=== PATIENT | male | born 1980 | race African-American/Black ===

== ENCOUNTER 2025-04-07 10:28 | Emergency (ER) | payer MEDICAID ==
[~2025-04-07] VITALS: Ht 180.3 cm; Wt 80.0 kg
[2025-04-07 10:50] VITALS: O2SAT 99
[2025-04-07] MEDS ORDERED: POTASSIUM CHLORIDE 20MEQ TABLET SR PO ONE (11:30)
[2025-04-07] MEDS: IBUPROFEN 600MG TABLET PO ONE (11:48)
[2025-04-07] MEDS ORDERED: HYDR30CR80 TP (11:58)
[2025-04-07] MEDS ORDERED: SENN-215 MT (11:58)
[2025-04-07] MEDS ORDERED: PSYL575P22 MT (11:58)
[2025-04-07 12:10] VITALS: BP 130/66; PULSE 82; RESP 15; TEMP 36.7; O2SAT 96
[2025-04-07] MEDS ORDERED: IBUP-2029 MT (12:19)
== END 2025-04-07 12:25 | disposition home or self-care (01) ==
LOC: ER 10:28
DX: K64.9 Unspecified hemorrhoids (principal); Z79.899 Other long term (current) drug therapy
CPT/HCPCS: 99283